=== PATIENT | female | born 1970 | race Caucasian/White ===

== ENCOUNTER 2022-02-06 17:14 | Emergency (ER) | payer OTHER | END 2022-02-06 18:20 | disposition home or self-care (01) | LOC: VM.ED 17:14 | DX: S20.219A Contusion of unspecified front wall of thorax, initial encounter (principal); I10 Essential (primary) hypertension; X50.9XXA Other and unspecified overexertion or strenuous movements or postures, initial encounter | CPT/HCPCS: 71045; 99283; 99284-25 ==

== ENCOUNTER 2022-06-10 18:01 | Emergency (ER) | payer SELFPAY | END 2022-06-10 18:31 | disposition home or self-care (01) | LOC: VM.ED 18:01 | DX: H65.193 Other acute nonsuppurative otitis media, bilateral (principal); I10 Essential (primary) hypertension; Z90.710 Acquired absence of both cervix and uterus | CPT/HCPCS: 99282; 99283 ==